=== PATIENT | male | born 2000 | race Caucasian/White ===

== ENCOUNTER 2023-10-20 09:19 | Emergency (ER) | payer MEDICAID, OTHER ==
[~2023-10-20] VITALS: Ht 180.3 cm; Wt 65.8 kg
[2023-10-20 09:30] VITALS: O2SAT 100
[2023-10-20] MEDS ORDERED: LORAZEPAM 0.5 MG TABLET PO ONE (09:45)
[2023-10-20] MEDS ORDERED: LORAZEPAM 0.5 MG TABLET ONE (09:56)
[2023-10-20] MEDS ORDERED: ARIPIPRAZOLE 5 MG TABLET ONE (10:30)
[2023-10-20] MEDS ORDERED: ARIPIPRAZOLE 5 MG TABLET PO ONE (10:30)
== END 2023-10-20 10:56 | disposition home or self-care (01) ==
LOC: ER 09:19
DX: F41.9 Anxiety disorder, unspecified (principal); F20.9 Schizophrenia, unspecified; Z60.2 Problems related to living alone
CPT/HCPCS: A4606; A4663

== ENCOUNTER 2023-10-21 13:13 | Emergency (ER) | payer MEDICAID, OTHER ==
[~2023-10-21] VITALS: Ht 180.3 cm; Wt 65.8 kg
[2023-10-21 13:16] VITALS: O2SAT 99
[2023-10-21] MEDS ORDERED: LORAZEPAM 0.5 MG TABLET PO ONE (13:30)
[2023-10-21] MEDS ORDERED: LORAZEPAM 1 MG TABLET ONE (13:39)
[2023-10-21] MEDS ORDERED: diphenhydrAMINE 50 MG/1 ML VIAL IM ONE (14:00)
[2023-10-21] MEDS ORDERED: HALOPERIDOL LACTATE 5 MG/1 ML VIAL IM ONE (14:00)
[2023-10-21] MEDS ORDERED: diphenhydrAMINE 50 MG/1 ML VIAL ONE (14:07)
[2023-10-21] MEDS ORDERED: HALOPERIDOL LACTATE 5 MG/1 ML VIAL ONE (14:08)
[2023-10-21 14:28] LABS: ALANINE AMINOTRANSFERASE 16 U/L (16-63); ALBUMIN 4.1 g/dL (3.4-5.0); ALKALINE PHOSPHATASE 94 U/L (50-136); ASPARTATE AMINOTRANSFERASE < 5 U/L (15-37); BILIRUBIN,DIRECT 0.2 mg/dL (0.0-0.2); BILIRUBIN,TOTAL 0.5 mg/dL (0.2-1.0); CALCIUM 9.3 mg/dL (8.5-10.1); CARBON DIOXIDE 30 mmol/L (21-32); CHLORIDE 100 mmol/L (98-107); CREATININE 0.8 mg/dL (0.6-1.3); ETHANOL < 3 MG/DL (0-10); GLUCOSE 110 mg/dL (74-106); POTASSIUM 3.9 mmol/L (3.5-5.1); SODIUM SERUM 137 mmol/L (136-145); TOTAL PROTEIN, SERUM 7.3 g/dL (6.4-8.2); UREA NITROGEN, BLOOD 5 mg/dL (7-18)
[2023-10-21 14:30] LABS: ACETAMINOPHEN < 2.0 ug/mL (10-30)
[2023-10-21 15:01] LABS: BASOPHILS % (AUTO) 0.6 % (0.0-2.0); EOSINOPHILS # (AUTO) 0.1 K/uL (0.0-0.7); EOSINOPHILS % (AUTO) 1.3 % (0.0-7.0); HEMATOCRIT 39.4 % (36.7-47.1); HEMOGLOBIN 13.6 g/dL (12.5-16.3); LYMPHOCYTES # (AUTO) 1.7 K/uL (0.8-4.8); LYMPHOCYTES % (AUTO) 37.6 % (20.5-51.5); MEAN CORPUSCULAR HEMOGLOBIN 30.7 uug (23.8-33.4); MEAN CORPUSCULAR HGB CONC 35 g/dL (32.5-36.3); MEAN CORPUSCULAR VOLUME 88.7 fL (73.0-96.2); MONOCYTES # (AUTO) 0.3 K/uL (0.1-1.30); MONOCYTES % (AUTO) 6.9 % (0.0-11.0); NEUTROPHILS # (AUTO) 2.4 K/uL (1.8-8.9); NEUTROPHILS % (AUTO) 53.6 % (38.5-71.5); PLATELET COUNT (AUTO) 155 K/uL (152-348); RED BLOOD CELL COUNT(AUTO) 4.44 MIL/uL (4.06-5.63); RED CELL DISTRIBUTION WIDTH 13.2 % (12.1-16.2); WHITE BLOOD COUNT (AUTO) 4.5 K/uL (3.6-10.2)
[2023-10-21 15:10] LABS: DIFFERENTIAL COMMENT 1
[2023-10-21 15:46] LABS: *BILIRUBIN,URIN NEGATIVE (NEGATIVE); *BLOOD, URINE NEGATIVE (NEGATIVE); *CLARITY,URINE CLEAR (CLEAR); *COLOR,URINE LIGHT YELLOW (YELLOW); *KETONES,URINE NEGATIVE (NEGATIVE); *PROTEIN,URINE NEGATIVE (NEGATIVE); *UROBILINOGEN,URINE 0.2 E.U./dl (NORMAL); LEUKOCYTE ESTERASE ,URINE NEGATIVE (NEGATIVE); NITRITE, URINE NEGATIVE (NEGATIVE); UGLUCOSE NEGATIVE (NEGATIVE)
[2023-10-21 16:09] LABS: *AMPHETAMINE, URINE NEGATIVE (NEGATIVE); *BARBITURATE, URINE NEGATIVE (NEGATIVE); *BENZODIAZEPINE, URINE NEGATIVE (NEGATIVE); *CANNABINOID, URINE NEGATIVE (NEGATIVE); *COCCAINE, URINE NEGATIVE (NEGATIVE); *OPIATE, URINE NEGATIVE (NEGATIVE); *PHENCYCLIDINE SCREEN,URINE NEGATIVE (NEGATIVE)
[2023-10-21 16:57] LABS: FENTANYL, URINE NEGATIVE (NEGATIVE)
== END 2023-10-21 19:05 ==
LOC: ER 13:15
DX: F41.9 Anxiety disorder, unspecified (principal); F20.9 Schizophrenia, unspecified
CPT/HCPCS: 80076; 80048; 81003; 85025; 36415; 99285; 96372 ×2; 80299; 80320; 80307; J1200; J1630; A4606; A4663; G0480

== ENCOUNTER 2025-02-13 14:36 | Emergency (ER) | payer MEDICAID ==
[~2025-02-13] VITALS: Ht 175.3 cm; Wt 86.2 kg
[2025-02-13] MEDS ORDERED: HYDR-3972 PO (15:06)
[2025-02-13] MEDS ORDERED: AMOX-430 PO (15:07)
[2025-02-13] MEDS ORDERED: NEOM10DR11 RIGHT EAR (15:07)
[2025-02-13 15:15] VITALS: BP 138/73; O2SAT 98
== END 2025-02-13 15:16 | disposition home or self-care (01) ==
LOC: ER 14:36
DX: H66.011 Acute suppurative otitis media with spontaneous rupture of ear drum, right ear (principal); F20.9 Schizophrenia, unspecified; F41.9 Anxiety disorder, unspecified; F32.A Depression, unspecified; Z86.79 Personal history of other diseases of the circulatory system
CPT/HCPCS: A4606; A4663

== ENCOUNTER 2025-03-11 10:32 | Emergency (ER) | payer MEDICAID ==
[~2025-03-11] VITALS: Ht 185.4 cm; Wt 92.1 kg
[~2025-03-11 10:32] MED LIST: AMOX-430 PO; HYDR-3972 PO; NEOM10DR11 RIGHT EAR
[2025-03-11] MEDS ORDERED: CLIN300C12 PO (11:33)
[2025-03-11] MEDS ORDERED: MUPI15CR TP (11:33)
[2025-03-11 11:39] VITALS: BP 135/79; O2SAT 95
== END 2025-03-11 11:39 | disposition home or self-care (01) ==
LOC: ER 10:32
DX: L60.0 Ingrowing nail (principal); M79.674 Pain in right toe(s); F41.9 Anxiety disorder, unspecified; F32.A Depression, unspecified; F20.9 Schizophrenia, unspecified; Z86.79 Personal history of other diseases of the circulatory system
CPT/HCPCS: A4606; A4663